=== PATIENT | female | born 1965 | race African-American/Black ===

== ENCOUNTER 2017-08-22 08:02 | Emergency (ER) | payer SELFPAY ==
[~2017-08-22] VITALS: Ht 167.6 cm; Wt 93.0 kg
[2017-08-22] MEDS ORDERED: ALBUTEROL/IPRATROPIUM 2.5MG/0.5MG, 3 ML ONE (08:48)
[2017-08-22] MEDS ORDERED: ALBUTEROL/IPRATROPIUM 2.5MG/0.5MG, 3 ML NPPB ONE (09:00)
[2017-08-22 09:46] VITALS: BP 128/68
== END 2017-08-22 09:49 | disposition home or self-care (01) ==
LOC: ED 09:26
DX: J45.31 Mild persistent asthma with (acute) exacerbation (principal)
CPT/HCPCS: 93005; 94640; 99283; J7620

== ENCOUNTER 2020-03-01 10:55 | Emergency (ER) | payer MEDICAID ==
[~2020-03-01] VITALS: Ht 170.2 cm; Wt 101.0 kg
[~2020-03-01 10:55] MED LIST: ALBU2.5V NEB; AMLO-150 PO; IPRA3AMP30 INH; LISI-167 PO; PRED10TA PO
[2020-03-01 11:00] VITALS: BP 176/119
[2020-03-01] MEDS ORDERED: ALBUTEROL/IPRATROPIUM 2.5MG/0.5MG, 3 ML ONE (11:45)
[2020-03-01] MEDS ORDERED: ALBUTEROL/IPRATROPIUM 2.5MG/0.5MG, 3 ML NPPB ONE (12:00)
--- NOTE | 2020-03-01 12:24 | NUR ---
Pt with hx of asthma, last breathing treatment at 0500. Pt able to speak in full sentences. Pt states she believes this is an asthma exacerbation. Report to VALENTINA Mitchell. Pt sitting up in bed, JOAN.
== END 2020-03-01 13:17 | disposition home or self-care (01) ==
LOC: ED 12:12
DX: J45.901 Unspecified asthma with (acute) exacerbation (principal); B34.9 Viral infection, unspecified; M79.10 Myalgia, unspecified site; R05 Cough; I50.1 Left ventricular failure, unspecified; R06.00 Dyspnea, unspecified; F17.210 Nicotine dependence, cigarettes, uncomplicated
CPT/HCPCS: 71045; 93005; 94640; 99283; 99406; J7512

== ENCOUNTER 2020-10-09 17:30 | Emergency (ER) | payer MEDICAID ==
[~2020-10-09] VITALS: Ht 170.2 cm; Wt 99.1 kg
[2020-10-09 17:49] VITALS: BP 137/91
[2020-10-09] MEDS ORDERED: ALBUTEROL/IPRATROPIUM 2.5MG/0.5MG, 3 ML NPPB STA (17:51)
[2020-10-09] MEDS ORDERED: PLEASE ENTER HEIGHT AND WEIGHT MC SCH (18:00)
--- NOTE | 2020-10-09 21:21 | NUR ---
CALLED FOR PT. PT NOT IN LOBBY
--- NOTE | 2020-10-09 21:48 | NUR ---
CALLED FOR PT. PT NOT IN LOBBY
--- NOTE | 2020-10-09 22:08 | NUR ---
CALLED FOR PT. PT NOT IN LOBBY
== END 2020-10-09 22:10 | disposition left against medical advice (07) ==
LOC: ED 22:04
DX: R06.00 Dyspnea, unspecified (principal); R07.89 Other chest pain; R51.9 Headache, unspecified
CPT/HCPCS: 71045; 93005; 99283

== ENCOUNTER 2020-10-10 00:51 | Emergency (ER) | payer MEDICAID ==
[~2020-10-10] VITALS: Ht 170.2 cm; Wt 100.0 kg
[2020-10-10] MEDS ORDERED: ALBUTEROL/IPRATROPIUM 2.5MG/0.5MG, 3 ML ONE (01:20)
[2020-10-10] MEDS ORDERED: ALBUTEROL/IPRATROPIUM 2.5MG/0.5MG, 3 ML NPPB ONE (01:30)
[2020-10-10 02:07] VITALS: BP 134/87
== END 2020-10-10 02:17 | disposition home or self-care (01) ==
LOC: ED 01:00
DX: J45.41 Moderate persistent asthma with (acute) exacerbation (principal); F17.210 Nicotine dependence, cigarettes, uncomplicated
CPT/HCPCS: 99283; 99406; J7512